=== PATIENT | female | born 1995 | race Caucasian/White ===

== ENCOUNTER 2023-12-16 12:21 | Emergency (ER) | payer OTHER ==
[~2023-12-16] VITALS: Ht 157.5 cm; Wt 82.1 kg
[2023-12-16 13:18] VITALS: BP 143/88; PULSE 104; RESP 16; TEMP 97.6; O2SAT 99
[2023-12-16] MEDS ORDERED: TETANUS-DIPTH-ACEL PERTUSSIS 0.5ML SYR Tdap IM ONE (13:30)
[2023-12-16] MEDS ORDERED: NAPR-746 PO (14:00)
== END 2023-12-16 14:07 | disposition home or self-care (01) ==
LOC: ER 12:21
DX: S01.332A Puncture wound without foreign body of left ear, initial encounter (principal); S01.352A Open bite of left ear, initial encounter; W54.0XXA Bitten by dog, initial encounter; Y93.89 Activity, other specified; Y92.89 Other specified places as the place of occurrence of the external cause; Y99.8 Other external cause status
CPT/HCPCS: 90471; 90715